=== PATIENT | male | born 1985 | race Two or more races ===

== ENCOUNTER 2019-12-21 18:41 | Inpatient (IN) | payer MEDICAID, OTHER ==
[~2019-12-21] VITALS: Ht 180.3 cm; Wt 111.7 kg
[2019-12-21 20:29] LABS: BASOPHILS % (AUTO) 0.8 % (0.0-2.0); EOSINOPHILS % (AUTO) 0.3 % (1.0-6.0); HEMATOCRIT 40.1 % (41-53); HEMOGLOBIN 13.5 g/dL (13.5-17.5); LYMPHOCYTES # (AUTO) 1.2 K/uL (1.0-4.8); MEAN CORPUSCULAR HEMOGLOBIN 29.1 pg (26.0-34.0); MEAN CORPUSCULAR HGB CONC 33.8 G/dL (31.0-37.0); MEAN CORPUSCULAR VOLUME 86 fL (80-100); MONOCYTES % (AUTO) 9.4 % (2.0-9.0); NEUTROPHILS # (AUTO) 8.6 K/uL (1.8-7.7); NEUTROPHILS % (AUTO) 78.5 % (40.0-70.0); RED BLOOD CELL COUNT(AUTO) 4.66 MIL/uL (4.50-5.90); RED CELL DISTRIBUTION WIDTH 16.6 % (11.5-14.5)
[2019-12-21 20:39] LABS: ANION GAP 13 mmol/L (8-16); CALCIUM, TOTAL 9.6 mg/dL (8.8-10.5); CARBON DIOXIDE 25 mmol/L (22-29); CHLORIDE 107 mmol/L (98-107); CREATININE 0.82 mg/dL (0.60-1.30); GLOMERULAR FILTR. RATE CALC > 60 mL/min (>60); GLUCOSE,RANDOM 86 mg/dL (70-110); POTASSIUM 4.2 mmol/L (3.5-5.1); SODIUM SERUM 145 mmol/L (136-145); UREA NITROGEN, BLOOD 16 mg/dL (7-18)
[2019-12-21 20:46] LABS: ALANINE AMINOTRANSFERASE 44 U/L (12-78); ALBUMIN 4.6 g/dL (3.4-5.0); ALKALINE PHOSPHATASE 77 U/L (46-116); ASPARTATE AMINOTRANSFERASE 75 U/L (15-37); BILIRUBIN,TOTAL 0.8 mg/dL (0.1-1.0); TOTAL PROTEIN, SERUM 8.9 g/dL (6.4-8.2)
[2019-12-21 21:06] LABS: PLATELET COUNT (AUTO) 326 K/uL (150-450)
[2019-12-21] MEDS ORDERED: CITA10TA68 PO (21:25)
[2019-12-21] MEDS ORDERED: SORA200T PO (21:25)
[2019-12-21] MEDS ORDERED: PANT40TA25 PO (21:25)
[2019-12-21] MEDS ORDERED: OLAN7.5T2 PO (21:25)
[2019-12-21] MEDS ORDERED: SIMV-260 PO (21:25)
[2019-12-21] MEDS ORDERED: DIVA125C PO (21:25)
[2019-12-21] MEDS ORDERED: LORazepam 1 MG TABLET PO ONE (22:45)
[2019-12-22] MEDS ORDERED: HALOPERIDOL 5 MG TABLET PO PRN (01:00)
[2019-12-22] MEDS ORDERED: ZOLPIDEM TARTRATE 10 MG TABLET PO PRN (01:00)
[2019-12-22] MEDS ORDERED: LORazepam 2 MG TABLET PO PRN (01:00)
[2019-12-22 01:32] VITALS: BP 142/79
[2019-12-22 08:20] VITALS: BP 138/82
[2019-12-22] MEDS ORDERED: CITA-106 PO (11:18)
[2019-12-22] MEDS ORDERED: DIVA-76 PO (11:18)
[2019-12-22] MEDS ORDERED: GuaiFENesin/D-METHORPHAN [SUGAR-FREE] 200-20MG/10 ML SYRUP UDCUP PO PRN (11:45)
[2019-12-22] MEDS ORDERED: CloNIDine HCL 0.1 MG TABLET PO PRN (11:45)
[2019-12-22] MEDS ORDERED: DOCUSATE SODIUM 100 MG CAPSULE PO PRN (11:45)
[2019-12-22] MEDS ORDERED: MAG HYDROX/AL HYDROX/SIMETH ES 30 ML SUSPENSION UDCUP PO PRN (11:45)
[2019-12-22] MEDS ORDERED: ONDANSETRON HCL 4 MG TABLET PO PRN (11:45)
[2019-12-22] MEDS ORDERED: IBUPROFEN 400 MG TABLET PO PRN (11:45)
[2019-12-22] MEDS ORDERED: LOPERAMIDE HCL 2 MG CAPSULE PO PRN (11:45)
[2019-12-22] MEDS ORDERED: NICOTINE 14 MG/24 HOUR PATCH TD PRN (11:45)
[2019-12-22] MEDS ORDERED: PETROLATUM,WHITE 28 GM JELLY TP PRN (11:45)
[2019-12-22] MEDS ORDERED: MAGNESIUM HYDROXIDE SUSPENSION 30 ML UDCUP PO PRN (11:45)
[2019-12-22] MEDS ORDERED: ALBUTEROL SULFATE HFA 90 MCG/PUFF 8 GM INHALER IH PRN (11:45)
[2019-12-22] MEDS ORDERED: ACETAMINOPHEN 325 MG TABLET PO PRN (11:45)
[2019-12-22] MEDS: DIVALPROEX SODIUM 250 MG DR TABLET PO SCH ×2 (13:08→20:01)
[2019-12-22] MEDS: SIMVASTATIN 20 MG TABLET PO SCH (13:08)
[2019-12-22] MEDS ORDERED: *PATIENT'S OWN MED [ENTER DRUG, DOSE, FREQUENCY IN COMMENTS] CLINICAL ONE (15:15)
[2019-12-22] MEDS: SORAFENIB TOSYLATE 200 MG PO SCH (16:29)
[2019-12-22 18:20] VITALS: BP 109/63
[2019-12-22] MEDS ORDERED: DIVALPROEX SODIUM 250 MG DR TABLET PO SCH (21:00)
[2019-12-23] MEDS: SORAFENIB TOSYLATE 200 MG PO SCH ×2 (06:54→16:01)
[2019-12-23] MEDS: DIVALPROEX SODIUM 250 MG DR TABLET PO SCH ×2 (08:29→20:19)
[2019-12-23] MEDS: SIMVASTATIN 20 MG TABLET PO SCH (08:29)
[2019-12-23] MEDS ORDERED: SIMVASTATIN 20 MG TABLET PO SCH (09:00)
[2019-12-23 09:08] VITALS: BP 145/75
[2019-12-23 16:08] VITALS: BP 147/99
[2019-12-24 00:05] VITALS: BP 153/99
[2019-12-24] MEDS: SORAFENIB TOSYLATE 200 MG PO SCH ×2 (07:02→16:18)
[2019-12-24 09:02] VITALS: BP 123/80
[2019-12-24] MEDS: SIMVASTATIN 20 MG TABLET PO SCH (09:38)
[2019-12-24] MEDS: DIVALPROEX SODIUM 250 MG DR TABLET PO SCH (09:38)
[2019-12-24] MEDS ORDERED: OLAN7.5T2 PO (13:42)
[2019-12-24] MEDS ORDERED: CITA-106 PO (13:42)
[2019-12-24 16:13] VITALS: BP 166/82
[2019-12-24] MEDS ORDERED: SIMV-260 PO ×3 (17:00→17:03)
[2020-01-28] MEDS ORDERED: OMEG-135 PO (06:09)
== END 2019-12-24 18:30 | disposition home or self-care (01) | DRG 885 ==
LOC: EMS 18:41 → 3EC 12-22 01:00
DX: F25.1 Schizoaffective disorder, depressive type (principal); C22.9 Malignant neoplasm of liver, not specified as primary or secondary; G40.909 Epilepsy, unspecified, not intractable, without status epilepticus; E78.5 Hyperlipidemia, unspecified; F17.210 Nicotine dependence, cigarettes, uncomplicated; F31.9 Bipolar disorder, unspecified; K21.9 Gastro-esophageal reflux disease without esophagitis; Z79.899 Other long term (current) drug therapy; Z85.05 Personal history of malignant neoplasm of liver; Z91.14 Patient's other noncompliance with medication regimen
CPT/HCPCS: 70450; G0480

== ENCOUNTER 2021-04-18 01:17 | Inpatient (IN) | payer MEDICAID, OTHER ==
[~2021-04-18] VITALS: Ht 180.3 cm; Wt 110.7 kg
[~2021-04-18 01:17] MED LIST: CITA-144 PO; DIVA-111 PO; OLAN7.5T22 PO
[2021-04-18] MEDS ORDERED: HALOPERIDOL LACTATE 5 MG/ML VIAL IM ONE (02:00)
[2021-04-18] MEDS ORDERED: DiphenhydrAMINE HCL 50 MG/ML VIAL IM ONE (02:00)
[2021-04-18] MEDS ORDERED: LORazepam 2 MG/ML VIAL IM ONE (02:00)
[2021-04-18 02:18] LABS: BASOPHILS % (AUTO) 0.3 % (0.0-2.0); EOSINOPHILS % (AUTO) 0.1 % (1.0-6.0); HEMATOCRIT 38.4 % (41-53); HEMOGLOBIN 12.8 g/dL (13.5-17.5); LYMPHOCYTES # (AUTO) 0.5 K/uL (1.0-4.8); LYMPHOCYTES % (AUTO) 4.6 % (22.0-44.0); MEAN CORPUSCULAR HEMOGLOBIN 28.2 pg (26.0-34.0); MEAN CORPUSCULAR HGB CONC 33.4 G/dL (31.0-37.0); MEAN CORPUSCULAR VOLUME 85 fL (80-100); MONOCYTES # (AUTO) 0.9 K/uL (0.1-1.0); MONOCYTES % (AUTO) 8.2 % (2.0-9.0); NEUTROPHILS # (AUTO) 9.9 K/uL (1.8-7.7); PLATELET COUNT (AUTO) 333 K/uL (150-450); RED BLOOD CELL COUNT(AUTO) 4.55 MIL/uL (4.50-5.90); RED CELL DISTRIBUTION WIDTH 16.2 % (11.5-14.5)
[2021-04-18 02:21] LABS: NEUTROPHILS % (AUTO) 86.8 % (40.0-70.0)
[2021-04-18 02:28] LABS: ANION GAP 14 mmol/L (8-16); CALCIUM, TOTAL 9.7 mg/dL (8.8-10.5); CARBON DIOXIDE 24 mmol/L (22-29); CHLORIDE 109 mmol/L (98-107); GLOMERULAR FILTR. RATE CALC 42 mL/min (>60); GLUCOSE,RANDOM 103 mg/dL (70-110); POTASSIUM 3.7 mmol/L (3.5-5.1); SODIUM SERUM 147 mmol/L (136-145); UREA NITROGEN, BLOOD 13 mg/dL (7-18)
[2021-04-18] MEDS ORDERED: ZOLPIDEM TARTRATE 10 MG TABLET PO PRN (02:30)
[2021-04-18] MEDS ORDERED: HALOPERIDOL 5 MG TABLET PO PRN (02:30)
[2021-04-18 02:34] LABS: ALANINE AMINOTRANSFERASE 29 U/L (12-78); ALBUMIN 4.8 g/dL (3.4-5.0); ALKALINE PHOSPHATASE 95 U/L (46-116); ASPARTATE AMINOTRANSFERASE 58 U/L (15-37); BILIRUBIN,TOTAL 0.4 mg/dL (0.1-1.0); TOTAL PROTEIN, SERUM 8.2 g/dL (6.4-8.2)
[2021-04-18 02:45] LABS: COVID AG,FIA SOURCE NASOPHARYNGEAL
[2021-04-18 02:47] LABS: GLUCOSE,POINT OF CARE 90 MG/DL (70-110)
[2021-04-18] MEDS ORDERED: SUCR1TAB28 PO (02:52)
[2021-04-18] MEDS ORDERED: DIVA-112 PO (02:52)
[2021-04-18] MEDS ORDERED: METF-960 PO (02:52)
[2021-04-18] MEDS ORDERED: LORA-999 PO (02:52)
[2021-04-18 12:39] LABS: GLUCOSE,POINT OF CARE 95 MG/DL (70-110)
[2021-04-18] MEDS: LORazepam 2 MG TABLET PO PRN (14:31)
[2021-04-18 19:16] VITALS: BP 136/85
[2021-04-18] MEDS ORDERED: PNEUMOCOCCAL VACCINE POLYVALENT 0.5 ML VIAL [PPSV23] IM. ONE (21:15)
[2021-04-18 21:50] LABS: GLUCOMETER DEV NAME(LOC) BV2S.; GLUCOSE,POINT OF CARE 147 MG/DL (70-110)
[2021-04-19 00:25] VITALS: BP 138/86
[2021-04-19] MEDS: MetFORMIN HCL 500 MG TABLET PO SCH ×2 (06:53→17:21)
[2021-04-19] MEDS ORDERED: ACETAMINOPHEN 325 MG TABLET PO PRN (07:30)
[2021-04-19] MEDS ORDERED: NICOTINE 14 MG/24 HOUR PATCH TD PRN (07:30)
[2021-04-19] MEDS ORDERED: MAG HYDROX/AL HYDROX/SIMETH ES 30 ML SUSPENSION UDCUP PO PRN (07:30)
[2021-04-19] MEDS ORDERED: GuaiFENesin/D-METHORPHAN [SUGAR-FREE] 200-20MG/10 ML SYRUP UDCUP PO PRN (07:30)
[2021-04-19] MEDS ORDERED: MAGNESIUM HYDROXIDE SUSPENSION 30 ML UDCUP PO PRN (07:30)
[2021-04-19] MEDS ORDERED: PETROLATUM,WHITE 28 GM JELLY TP PRN (07:30)
[2021-04-19] MEDS ORDERED: IBUPROFEN 400 MG TABLET PO PRN (07:30)
[2021-04-19] MEDS ORDERED: ONDANSETRON HCL 4 MG TABLET PO PRN (07:30)
[2021-04-19] MEDS ORDERED: LOPERAMIDE HCL 2 MG CAPSULE PO PRN (07:30)
[2021-04-19] MEDS ORDERED: ALBUTEROL SULFATE HFA 90 MCG/PUFF 8 GM INHALER IH PRN (07:30)
[2021-04-19] MEDS ORDERED: CloNIDine HCL 0.1 MG TABLET PO PRN (07:30)
[2021-04-19] MEDS ORDERED: DOCUSATE SODIUM 100 MG CAPSULE PO PRN (07:30)
[2021-04-19] MEDS: PANTOPRAZOLE SODIUM 40 MG DR TABLET PO SCH (08:36)
[2021-04-19 09:10] VITALS: BP 135/79
[2021-04-19] MEDS: DIVALPROEX SODIUM 500 MG DR TABLET PO SCH ×2 (14:48→17:21)
[2021-04-19] MEDS: SUCRALFATE 1 GM TABLET PO SCH (15:45)
[2021-04-19 16:13] VITALS: BP 133/81
[2021-04-19] MEDS ORDERED: DIVALPROEX SODIUM 250 MG DR TABLET PO SCH (17:00)
[2021-04-19] MEDS: OLANZapine 10 MG TABLET PO SCH (20:12)
[2021-04-20 00:23] VITALS: BP 119/61
[2021-04-20] MEDS: MetFORMIN HCL 500 MG TABLET PO SCH ×2 (06:27→16:48)
[2021-04-20] MEDS: SUCRALFATE 1 GM TABLET PO SCH (08:33)
[2021-04-20] MEDS: DIVALPROEX SODIUM 500 MG DR TABLET PO SCH ×3 (08:34→16:48)
[2021-04-20] MEDS: PANTOPRAZOLE SODIUM 40 MG DR TABLET PO SCH (08:34)
[2021-04-20] MEDS: CITALOPRAM HYDROBROMIDE 20 MG TABLET PO SCH (08:34)
[2021-04-20] MEDS: LORazepam 2 MG TABLET PO PRN (08:37)
[2021-04-20 08:46] VITALS: BP 136/78
[2021-04-20 16:42] VITALS: BP 128/81
[2021-04-20] MEDS: OLANZapine 10 MG TABLET PO SCH (19:38)
[2021-04-21 01:28] VITALS: BP 111/51
[2021-04-21] MEDS: MetFORMIN HCL 500 MG TABLET PO SCH ×2 (06:42→16:39)
[2021-04-21 08:12] VITALS: BP 131/83
[2021-04-21] MEDS: DIVALPROEX SODIUM 500 MG DR TABLET PO SCH ×3 (08:30→16:39)
[2021-04-21] MEDS: CITALOPRAM HYDROBROMIDE 20 MG TABLET PO SCH (08:30)
[2021-04-21] MEDS: PANTOPRAZOLE SODIUM 40 MG DR TABLET PO SCH (08:30)
[2021-04-21] MEDS: SUCRALFATE 1 GM TABLET PO SCH (08:57)
[2021-04-21 16:27] VITALS: BP 138/85
[2021-04-21] MEDS ORDERED: DIVA-112 PO (16:46)
[2021-04-21] MEDS ORDERED: OLAN10TA74 PO ×2 (16:47→16:49)
[2021-04-21] MEDS ORDERED: METF-960 PO (16:50)
[2021-04-21] MEDS ORDERED: PANT-31 PO (16:52)
[2021-04-21] MEDS ORDERED: SUCR1TAB28 PO (16:53)
[2021-04-21] MEDS ORDERED: CITA-144 PO (17:01)
== END 2021-04-21 17:30 | disposition home or self-care (01) | DRG 750 ==
LOC: EMS 01:22 → B2S 16:08
PROVIDERS: ADMIT Psychiatry & Neurology Psychiatry; ATTEND Psychiatry & Neurology Psychiatry
DX: F25.9 Schizoaffective disorder, unspecified (principal); E87.0 Hyperosmolality and hypernatremia; E11.9 Type 2 diabetes mellitus without complications; Z78.1 Physical restraint status; E78.5 Hyperlipidemia, unspecified; F17.210 Nicotine dependence, cigarettes, uncomplicated; D64.9 Anemia, unspecified; G40.909 Epilepsy, unspecified, not intractable, without status epilepticus; Z20.822 Contact with and (suspected) exposure to COVID-19; K21.9 Gastro-esophageal reflux disease without esophagitis; Z85.05 Personal history of malignant neoplasm of liver; Z91.14 Patient's other noncompliance with medication regimen
CPT/HCPCS: 80053; 80061; 82962; 85025; 90732; 99291; G0480; J1200; J1630; J2060

== ENCOUNTER 2025-05-03 11:15 | Inpatient (IN) | payer MEDICAID, OTHER ==
[~2025-05-03] VITALS: Ht 180.3 cm; Wt 153.0 kg
[~2025-05-03 11:15] MED LIST changes: -DIVA-111 PO; +DIVA-112 PO; +METF-1211 PO; +OLAN10TA74 PO; -OLAN7.5T22 PO; +PANT-31 PO; +SUCR1TAB28 PO
[2025-05-03 11:34] LABS: PLATELET COUNT (AUTO) 260 K/uL (150-450); RED BLOOD CELL COUNT(AUTO) 4.33 MIL/uL (4.50-5.90); RED CELL DISTRIBUTION WIDTH 16.8 % (11.5-14.5); WHITE BLOOD COUNT (AUTO) 4.7 K/uL (4.5-11.0)
[2025-05-03 11:43] LABS: COVID AG,FIA SOURCE NASAL SWAB
[2025-05-03 11:44] LABS: CALCIUM, TOTAL 9.2 mg/dL (8.8-10.5); CREATININE 0.56 mg/dL (0.60-1.30); GLOMERULAR FILTR. RATE CALC > 60 mL/min (>60); GLUCOSE,RANDOM 167 mg/dL (70-110); SODIUM SERUM 141 mmol/L (136-145); UREA NITROGEN, BLOOD 6 mg/dL (7-18)
[2025-05-03 12:21] LABS: SARS-COV2 (COVID) ANTIGEN,FIA Negative (Negative)
[2025-05-03 14:33] LABS: PH,URINE DRUG SCREEN 7.0 (5.0-8.0)
[2025-05-03 14:40] LABS: ALCOHOL, URINE DRUG SCREEN NEGATIVE (NEGATIVE); AMPHET/METH SCREEN,URINE NEGATIVE (NEGATIVE); BARBITURATE SCREEN, URINE NEGATIVE (NEGATIVE); CANNABINOID SCREEN,URINE NEGATIVE (NEGATIVE); COCAINE SCREEN,URINE NEGATIVE (NEGATIVE); METHADONE SCREEN, URINE NEGATIVE (NEGATIVE)
[2025-05-04 08:51] LABS: GLUCOMETER DEV NAME(LOC) ERT.7; GLUCOSE,POINT OF CARE 184 MG/DL (70-110)
[2025-05-04] MEDS ORDERED: SIMV-261 PO (18:38)
[2025-05-04] MEDS ORDERED: NPH,100V SQ (18:38)
[2025-05-04] MEDS ORDERED: GLIP-383 PO (18:38)
[2025-05-04] MEDS ORDERED: [UNRECOGNIZED DRUG - CODE] PO (18:38)
[2025-05-04] MEDS ORDERED: LEVO50TA11 PO (18:38)
[2025-05-04 21:27] VITALS: BP 134/91; PULSE 94; RESP 18; TEMP 97.7; O2SAT 97
[2025-05-04 23:07] LABS: APPEARANCE,URINE CLEAR (CLEAR); GLUCOSE, URINE (UA) TRACE mg/dL (NEGATIVE); LEUKOCYTE ESTERASE ,URINE NEGATIVE (NEGATIVE); NITRATE,URINE NEGATIVE (NEGATIVE); OCCULT BLOOD,URINE NEGATIVE (NEGATIVE); SPECIFIC GRAVITIY, URINE 1.019 (1.003-1.030)
[2025-05-05] MEDS ORDERED: DEXTROSE 50%-WATER 25 GM/50 ML SYRINGE IVP PRN ×2 (06:00→09:30)
[2025-05-05] MEDS: INSULIN LISPRO 100 UNITS/ML SQ PRN ×2 (06:50→21:11)
[2025-05-05 07:00] LABS: GLUCOMETER DEV NAME(LOC) 3E.C; GLUCOSE,POINT OF CARE 250 MG/DL (70-110)
[2025-05-05] MEDS ORDERED: NICOTINE 14 MG/24 HOUR PATCH TD PRN (09:30)
[2025-05-05] MEDS ORDERED: ONDANSETRON 4 MG TABLET PO PRN (09:30)
[2025-05-05] MEDS ORDERED: PETROLATUM,WHITE 28 GM JELLY TP PRN (09:30)
[2025-05-05] MEDS ORDERED: MAGNESIUM HYDROXIDE SUSPENSION 30 ML UDCUP PO PRN (09:30)
[2025-05-05] MEDS ORDERED: DOCUSATE SODIUM 100 MG CAPSULE PO PRN (09:30)
[2025-05-05] MEDS ORDERED: LOPERAMIDE HCL 2 MG CAPSULE PO PRN (09:30)
[2025-05-05] MEDS ORDERED: ACETAMINOPHEN 325 MG TABLET PO PRN (09:30)
[2025-05-05 10:25] VITALS: BP 122/79; PULSE 89; RESP 18; TEMP 97.9; O2SAT 98
[2025-05-05] MEDS ORDERED: DIVA125C20 PO (11:09)
[2025-05-05] MEDS ORDERED: METF-81 PO (11:09)
[2025-05-05 12:11] LABS: GLUCOMETER DEV NAME(LOC) 3E.C; GLUCOSE,POINT OF CARE 225 MG/DL (70-110)
[2025-05-05] MEDS: DIVALPROEX SODIUM 125 MG DR CAPSULE PO SCH (13:15)
[2025-05-05] MEDS: ALBUTEROL SULFATE HFA 90 MCG/PUFF 8 GM INHALER IH PRN (15:07)
[2025-05-05] MEDS: MetFORMIN HCL 500 MG ER TABLET PO SCH (16:37)
[2025-05-05] MEDS: GlipiZIDE ER 2.5 MG ER TABLET PO SCH (16:38)
[2025-05-05 17:26] LABS: GLUCOMETER DEV NAME(LOC) 3E.C; GLUCOSE,POINT OF CARE 173 MG/DL (70-110)
[2025-05-05] MEDS: SIMVASTATIN 40 MG TABLET PO SCH (20:15)
[2025-05-05 20:16] LABS: GLUCOMETER DEV NAME(LOC) 3E.C; GLUCOSE,POINT OF CARE 190 MG/DL (70-110)
[2025-05-05 20:54] VITALS: BP 130/82; PULSE 89; RESP 18; TEMP 97.8; O2SAT 98
[2025-05-06 06:11] LABS: GLUCOMETER DEV NAME(LOC) 3E.C; GLUCOSE,POINT OF CARE 126 MG/DL (70-110)
[2025-05-06] MEDS: LEVOTHYROXINE SODIUM 50 MCG TABLET PO SCH (06:41)
[2025-05-06] MEDS: PANTOPRAZOLE SODIUM 40 MG DR TABLET PO SCH (09:27)
[2025-05-06] MEDS: SUCRALFATE 1 GM TABLET PO SCH (09:27)
[2025-05-06 09:51] LABS: CHOL/HDL RATIO 4.3 (4.2-7.3); LDL CHOL (CALC.) 40.0 mg/dL (0-130)
[2025-05-06] MEDS: INSULIN NPH, HUMAN ISOPHANE 100 UNITS/ML SQ SCH (10:01)
[2025-05-06 11:06] VITALS: BP 133/88; PULSE 85; RESP 18; TEMP 97.1; O2SAT 100
[2025-05-06 11:56] LABS: GLUCOMETER DEV NAME(LOC) 3E.C; GLUCOSE,POINT OF CARE 138 MG/DL (70-110)
[2025-05-06 17:05] LABS: GLUCOMETER DEV NAME(LOC) 3E.C; GLUCOSE,POINT OF CARE 147 MG/DL (70-110)
[2025-05-06 20:15] LABS: GLUCOMETER DEV NAME(LOC) 3E.C; GLUCOSE,POINT OF CARE 136 MG/DL (70-110)
[2025-05-06 21:21] VITALS: BP 146/94; PULSE 103; RESP 18; TEMP 98.1; O2SAT 99
[2025-05-06] MEDS: ZOLPIDEM TARTRATE 10 MG TABLET PO PRN (23:06)
[2025-05-07 05:31] LABS: GLUCOMETER DEV NAME(LOC) 3E.C; GLUCOSE,POINT OF CARE 145 MG/DL (70-110)
[2025-05-07 10:42] VITALS: BP 128/89; PULSE 114; RESP 18; TEMP 97.9; O2SAT 98
[2025-05-07 12:05] LABS: GLUCOMETER DEV NAME(LOC) 3E.C; GLUCOSE,POINT OF CARE 119 MG/DL (70-110)
[2025-05-07 17:15] LABS: GLUCOMETER DEV NAME(LOC) 3E.C; GLUCOSE,POINT OF CARE 111 MG/DL (70-110)
[2025-05-07 19:30] VITALS: BP 200/100; PULSE 125
[2025-05-07 20:45] LABS: GLUCOMETER DEV NAME(LOC) 3E.C; GLUCOSE,POINT OF CARE 139 MG/DL (70-110)
[2025-05-07 20:52] VITALS: BP 149/90; PULSE 130; RESP 18; TEMP 97; O2SAT 98
[2025-05-08 06:45] LABS: GLUCOMETER DEV NAME(LOC) 3E.C; GLUCOSE,POINT OF CARE 131 MG/DL (70-110)
[2025-05-08 08:45] VITALS: BP 134/79; PULSE 88; RESP 18; TEMP 97.5; O2SAT 100
[2025-05-08 17:25] LABS: GLUCOMETER DEV NAME(LOC) 3E.C; GLUCOSE,POINT OF CARE 70 MG/DL (70-110)
[2025-05-08 21:00] VITALS: BP 144/90; PULSE 99; RESP 17; TEMP 98.2; O2SAT 100
[2025-05-09 05:50] LABS: GLUCOMETER DEV NAME(LOC) 3E.C; GLUCOSE,POINT OF CARE 100 MG/DL (70-110)
[2025-05-09 06:46] LABS: GLUCOMETER DEV NAME(LOC) 3E.C; GLUCOSE,POINT OF CARE 118 MG/DL (70-110)
[2025-05-09] MEDS: MAG HYDROX/ALUMINUM HYD/SIMETH ES 30 ML SUSPENSION UDCUP PO PRN (09:04)
[2025-05-09 12:05] LABS: GLUCOMETER DEV NAME(LOC) 3E.C; GLUCOSE,POINT OF CARE 79 MG/DL (70-110)
[2025-05-09 13:43] VITALS: BP 143/87; PULSE 89; RESP 18; TEMP 97.7; O2SAT 99
[2025-05-09 17:26] LABS: GLUCOMETER DEV NAME(LOC) 3E.C; GLUCOSE,POINT OF CARE 116 MG/DL (70-110)
[2025-05-09 21:40] LABS: GLUCOMETER DEV NAME(LOC) 3E.C; GLUCOSE,POINT OF CARE 88 MG/DL (70-110)
[2025-05-09 22:40] VITALS: BP 133/82; PULSE 100; RESP 17; TEMP 98.4; O2SAT 99
[2025-05-10] MEDS: GuaiFENesin/D-METHORPHAN [SUGAR-FREE] 200-20MG/10 ML SYRUP UDCUP PO PRN (03:03)
[2025-05-10 07:10] LABS: GLUCOMETER DEV NAME(LOC) 3E.C; GLUCOSE,POINT OF CARE 86 MG/DL (70-110)
[2025-05-10 08:48] VITALS: BP 129/87; PULSE 99; RESP 18; O2SAT 100
[2025-05-10 12:05] LABS: GLUCOMETER DEV NAME(LOC) 3E.C; GLUCOSE,POINT OF CARE 84 MG/DL (70-110)
[2025-05-10 17:46] LABS: GLUCOMETER DEV NAME(LOC) 3E.C; GLUCOSE,POINT OF CARE 120 MG/DL (70-110)
[2025-05-10 20:30] LABS: GLUCOMETER DEV NAME(LOC) 3E.C; GLUCOSE,POINT OF CARE 138 MG/DL (70-110)
[2025-05-10 20:41] VITALS: BP 104/88; PULSE 103; RESP 18; TEMP 98.2; O2SAT 100
[2025-05-11 05:35] LABS: GLUCOMETER DEV NAME(LOC) 3E.C; GLUCOSE,POINT OF CARE 92 MG/DL (70-110)
[2025-05-11 09:31] VITALS: BP 128/90; PULSE 98; RESP 16; TEMP 97.6; O2SAT 99
[2025-05-11 11:45] LABS: GLUCOMETER DEV NAME(LOC) 3E.C; GLUCOSE,POINT OF CARE 112 MG/DL (70-110)
[2025-05-11 19:16] LABS: GLUCOMETER DEV NAME(LOC) 3E.C; GLUCOSE,POINT OF CARE 157 MG/DL (70-110)
[2025-05-11 20:00] VITALS: BP 134/84; PULSE 101; RESP 18; TEMP 97.8; O2SAT 98
[2025-05-11 22:20] LABS: GLUCOMETER DEV NAME(LOC) 3E.C; GLUCOSE,POINT OF CARE 113 MG/DL (70-110)
[2025-05-11 22:50] VITALS: RESP 18
[2025-05-11] MEDS: IBUPROFEN 400 MG TABLET PO PRN (22:54)
[2025-05-11 23:54] VITALS: RESP 18
[2025-05-12 06:50] LABS: GLUCOMETER DEV NAME(LOC) 3E.C; GLUCOSE,POINT OF CARE 101 MG/DL (70-110)
[2025-05-12 08:26] LABS: GLUCOMETER DEV NAME(LOC) 3E.C; GLUCOSE,POINT OF CARE 98 MG/DL (70-110)
[2025-05-12 08:42] VITALS: BP 152/102; PULSE 94; RESP 18; TEMP 98; O2SAT 100
[2025-05-12 09:46] LABS: GLUCOMETER DEV NAME(LOC) 3E.C; GLUCOSE,POINT OF CARE 163 MG/DL (70-110)
[2025-05-12] MEDS ORDERED: ALBUTEROL SULFATE 2.5 MG/0.5 ML NEB SOLUTION NEB PRN (11:15)
[2025-05-12 12:05] LABS: GLUCOMETER DEV NAME(LOC) 3E.C; GLUCOSE,POINT OF CARE 89 MG/DL (70-110)
[2025-05-12] MEDS: FLUTICASONE/VILANTEROL 200-25 MCG/INH INHALER [14] IH SCH (12:08)
[2025-05-12 16:50] LABS: GLUCOMETER DEV NAME(LOC) 3E.C; GLUCOSE,POINT OF CARE 189 MG/DL (70-110)
[2025-05-12 21:36] LABS: GLUCOMETER DEV NAME(LOC) 3E.C; GLUCOSE,POINT OF CARE 150 MG/DL (70-110)
[2025-05-12 21:47] VITALS: BP 150/78; PULSE 112; RESP 18; TEMP 98; O2SAT 98
[2025-05-12 23:33] VITALS: RESP 18
[2025-05-13 00:36] VITALS: RESP 18
[2025-05-13 06:50] LABS: GLUCOMETER DEV NAME(LOC) 3E.C; GLUCOSE,POINT OF CARE 72 MG/DL (70-110)
[2025-05-13 08:00] VITALS: BP 115/80; PULSE 92; RESP 17; TEMP 97.7; O2SAT 100
[2025-05-13 09:51] LABS: GLUCOMETER DEV NAME(LOC) 3E.C; GLUCOSE,POINT OF CARE 184 MG/DL (70-110)
[2025-05-13] MEDS ORDERED: SIMV-46 PO (11:33)
[2025-05-13] MEDS ORDERED: PANT-31 PO (11:33)
[2025-05-13] MEDS ORDERED: NPH,100V SQ (11:33)
[2025-05-13] MEDS ORDERED: DIVA125C20 PO (11:33)
[2025-05-13] MEDS ORDERED: OLAN10TA74 PO (11:33)
[2025-05-13] MEDS ORDERED: METF-81 PO (11:33)
[2025-05-13] MEDS ORDERED: AMLO-257 PO (11:33)
[2025-05-13] MEDS ORDERED: GLIP2.5T28 PO (11:33)
[2025-05-13] MEDS ORDERED: SUCR1TAB28 PO (11:33)
[2025-05-13] MEDS ORDERED: FLUT1BLS IH (11:33)
[2025-05-13] MEDS ORDERED: LEVO50 PO (11:33)
[2025-05-13 12:00] LABS: GLUCOMETER DEV NAME(LOC) 3E.C; GLUCOSE,POINT OF CARE 175 MG/DL (70-110)
[2025-05-13] MEDS ORDERED: PRED-554 PO ×2 (12:48→13:48)
[2025-05-13] MEDS ORDERED: ALBU18HF12 IH (13:49)
== END 2025-05-13 13:30 | disposition home or self-care (01) | DRG 750 ==
LOC: EMS 11:16 → UNDOADMIN 05-04 20:57 → 3EC 05-04 20:57
PROVIDERS: ADMIT Psychiatry & Neurology Psychiatry; ATTEND Psychiatry & Neurology Psychiatry
PROC: GZHZZZZ Group Psychotherapy (ICD-10-PCS; principal; 2025-05-05)
PROC: GZ52ZZZ Individual Psychotherapy, Cognitive (ICD-10-PCS; 2025-05-05)
DX: F25.0 Schizoaffective disorder, bipolar type (principal); E11.9 Type 2 diabetes mellitus without complications; E87.6 Hypokalemia; G47.00 Insomnia, unspecified; J45.909 Unspecified asthma, uncomplicated; K21.9 Gastro-esophageal reflux disease without esophagitis; Z20.822 Contact with and (suspected) exposure to COVID-19; I10 Essential (primary) hypertension; Z85.05 Personal history of malignant neoplasm of liver; Z87.891 Personal history of nicotine dependence; Z79.4 Long term (current) use of insulin; Z91.148 Patient's other noncompliance with medication regimen for other reason
CPT/HCPCS: 71046; 80048; 80061; 80164; 80307; 81001; 82962; 83036; 84132; 84443; 85025; 99285; G0480; J1815; J3535; 36415-L1; 36415-TC